=== PATIENT | female | born 1965 | race African-American/Black ===

== ENCOUNTER 2017-02-06 11:54 | Inpatient (IN) | payer OTHER ==
[2017-02-06 12:14] VITALS: BMI 24.7
--- NOTE | 2017-02-06 12:50 | HP ---
CIWA Score - CIWA Score Nausea/Vomitin-Mild Nausea/No Vomiting Muscle Tremors: 4-Moderate,w/Arms Extend Anxiety: 4-Mod. Anxious/Guarded Agitation: 1-Slight > Activity Paroxysmal Sweats: 1-Minimal Palms Moist Orientation: 1-Uncertain about Date Tacttile Disturbances: 1-Very Mild Itch/Numbness Auditory Disturbances: 1-Very Mild Visual Disturbances: 1-Very Mild Sensitivity Headache: 1-Very Mild CIWA-Ar Total Score: 16 Admission ROS S - HPI Chief Complaint: I'm tired, I want to stop drinking, my life is messed up and I'm so sad about it Allergies/Adverse Reactions: Allergies Allergy/AdvReac Type Severity Reaction Status Date / Time No Known Allergies Allergy Verified 10/25/16 10:50 History of Present Illness: 51 year old woman here for detox from alcohol. Last here in october 2016 for detox but relapsed shortly after. No seizures but does have black outs. States she was in [facility] ED yesterday for asthma - placed on albuteral and oral prednisone - coughing up thick whitish phlegm. Has lost about 10lbs in last month. Exam Limitations: Clinical Condition - Ebola screening Have you traveled outside of the country in the last 21 days: No Have you had contact with anyone from an Ebola affected area: No Have you been sick,other than usual withdrawal symptoms: No Do you have a fever: No - Review of Systems Constitutional: Chills, Loss of Appetite, Night Sweats, Changes in sleep EENT: reports: Blurred Vision Respiratory: reports: Cough, SOB with Exertion, Productive cough (thick white phlegm) Cardiac: reports: No Symptoms Reported GI: reports: Diarrhea, Indigestion : reports: Frequency Musculoskeletal: reports: No Symptoms Reported Integumentary: reports: Dryness Neuro: reports: Headache Endocrine: reports: No Symptoms Reported Hematology: reports: No Symptoms Reported Psychiatric: reports: Judgement Intact, Mood/Affect Appropiate, Anxious Other Systems: Reviewed and Negative Patient History - Patient Medical History Hx Anemia: Yes (Previously taking Iron supplmentation, has not taken for last 3 weeks.) Hx Asthma: Yes (non -complaint with meds.) Hx Chronic Obstructive Pulmonary Disease (COPD): No Hx Cancer: No Hx Cardiac Disorders: Yes (2 previous IL's, both in 05/2016.) Hx Congestive Heart Failure: No Hx Hypertension: Yes Hx Hypercholesterolemia: Yes (On meds.) Hx Pacemaker: No HX Cerebrovascular Accident: No Hx Seizures: No Hx Dementia: No Hx Diabetes: No Hx Gastrointestinal Disorders: Yes (Hx of GERD.) Hx Liver Disease: No Hx Genitourinary Disorders: No Hx Sexually Transmitted Disorders: No Hx Renal Disease (ESRD): No Hx Thyroid Disease: No Hx Human Immunodeficiency Virus (HIV): No Hx Hepatitis C: No Hx Depression: No Hx Suicide Attempt: Yes (Tried to jump in [place] in 1991; PT. DENIES CURRENT SI/HI.) Hx Bipolar Disorder: Yes (Previously on meds., not for last 3 weeks.) Hx Schizophrenia: Yes - Patient Surgical History Past Surgical History: Yes Hx Neurologic Surgery: No Hx Cataract Extraction: No Hx Cardiac Surgery: Yes (stent x1 in 04/30 in [facility].) Hx Lung Surgery: No Hx Breast Surgery: No Hx Breast Biopsy: No Hx Abdominal Surgery: No Hx Appendectomy: No Hx Cholecystectomy: No Hx Genitourinary Surgery: No Hx Section: Yes (x 6) Hx Orthopedic Surgery: No Hx Hysterectomy: No Other Surgical History: TUBAL LIGATION: 2003. Anesthesia Reaction: No - PPD History Date: 10/27/16 - Reproductive History Patient is a Female of Child Bearing Age (11 -55 yrs old): Yes Last Menstrual Period: 06/01/16 - Smoking Cessation Smoking history: Current every day smoker Have you smoked in the past 12 months: Yes Aproximately how many cigarettes per day: 10 Cigars Per Day: 0 Hx Chewing Tobacco Use: No Initiated information on smoking cessation: Yes 'Breaking Loose' booklet given: 02/06/17 (give on floor) - Substance & Tx. History Hx Alcohol Use: Yes Hx Substance Use: No Substance Use Type: Alcohol Hx Substance Use Treatment: Yes (detox, rehab) - Substances Abused Alcohol Route: Oral Frequency: Daily Amount used: ten 24oz cans beer; 3 pints liquor Age of first use: 16 (also as baby) Date of Last Use: 02/06/17 Family Disease History - Family Disease History Family Disease History: CA: Grandparent ( brain cancer), Mother ( - etoh - throat cancer), Other: Father ( - etoh-heroin -hiv), Mother Admission Physical Exam BHS - Vital Signs Vital Signs: Vital Signs - 24 hr 02/06/17 12:13 Temperature 98.1 F Pulse Rate 82 Respiratory 18 Rate Blood Pressure 128/79 - Physical General Appearance: Yes: Nourished, Appropriately Dressed, Mild Distress, Anxious HEENTM: Yes: Hearing grossly Normal, Normal ENT Inspection, Normocephalic, Normal Voice, Pharynx Normal Respiratory: Yes: No Respiratory Distress, Rhonchi, Other (coughing up thick, [place]/white phlegm) Neck: Yes: No masses,lesions,Nodules, Supple Breast: Yes: Breast Exam Deferred Cardiology: Yes: Regular Rhythm, Regular Rate Abdominal: Yes: Soft Genitourinary: Yes: Frequency Back: Yes: Normal Inspection Musculoskeletal: Yes: full range of Motion, Gait Steady Extremities: Yes: Normal Inspection, Normal Range of Motion, Non-Tender Neurological: Yes: Fully Oriented, Alert, Normal Mood/Affect, Normal Response Integumentary: Yes: Normal Color, Dry, Warm Lymphatic: Yes: Within Normal Limits - Diagnostic (1) Alcohol dependence with uncomplicated withdrawal Current Visit: Yes Status: Chronic (2) Asthma Current Visit: Yes Status: Chronic Qualifiers: Asthma severity: moderate persistent Asthma complication type: uncomplicated Qualified Code(s): J45.40 - Moderate persistent asthma, uncomplicated (3) Hypercholesteremia Current Visit: Yes Status: Chronic (4) Hypertension Current Visit: Yes Status: Chronic Qualifiers: Hypertension type: essential hypertension Qualified Code(s): I10 - Essential (primary) hypertension Cleared for Admission [facility] - Detox or Rehab [facility] Level of Care: Medically Managed Detox Regimen/Protocol: Librium [facility] Breath Alcohol Content Breath Alcohol Content: 0.022 Urine Pregancy Test - Result Urine Test Results: Negative- NO Line Present Urine Drug Screen - Results Drug Screen Negative: Yes
[2017-02-06] MEDS ORDERED: MAGNESIUM CITRATE 300 ML BOTTLE PO PRN (13:04)
[2017-02-06] MEDS ORDERED: NICOTINE POLACRILEX 2 MG GUM BUC PRN (13:04)
[2017-02-06] MEDS ORDERED: P-EPHED 60MG/TRIPROLIDI 2.5MG TABLET PO PRN (13:04)
[2017-02-06] MEDS ORDERED: guaiFENesin/D-METHORPHAN HB 10 ML UNIT-DOSE CUPS PO PRN (13:04)
[2017-02-06] MEDS ORDERED: MENTHOL/PHENOL 1 EACH UD MM PRN (13:04)
[2017-02-06] MEDS ORDERED: LOPERAMIDE HCL 2 MG CAPSULE PO PRN (13:04)
[2017-02-06] MEDS ORDERED: hydrOXYzine PAMOATE 50 MG CAPSULE (FP) PO PRN (13:04)
[2017-02-06] MEDS ORDERED: ACETAMINOPHEN 325 MG TABLET (FP) PO PRN (13:04)
[2017-02-06] MEDS ORDERED: ALBUTEROL SO4 6.7 GM HFA INHALER IH PRN (13:06)
[2017-02-06] MEDS ORDERED: chlordiazePOXIDE HCL 25 MG CAPSULE PO PRN (13:20)
[2017-02-06] MEDS ORDERED: diphenhydrAMINE HCL 50 MG CAPSULE PO PRN (13:21)
[2017-02-06] MEDS ORDERED: ALBUTEROL SO4 2.5/IPRATROPIUM 0.5 INH SOL 3 ML VIAL.NEB. NEB PRN (13:23)
[2017-02-06] MEDS ORDERED: chlordiazePOXIDE HCL 25 MG CAPSULE PO ONE (14:30)
[2017-02-06] MEDS: PANTOPRAZOLE 40 MG TABLET (FP) PO SCH (14:52)
[2017-02-06] MEDS: predniSONE 20 MG TABLET (UD) PO SCH (14:52)
--- NOTE | 2017-02-06 15:16 | CONSULT ---
[facility] Psychiatric Consult - Data Date of interview: 02/06/17 Admission source: [facility] Identifying data: Readmission to [facility] for this 51 y/o AA female seeking detox treatment for alcohol dependence.Patient is single,a mother of two, homeless (snf),unemployed and supported on food stamps. Substance Abuse History: - Smoking Cessation. Smoking history: Current every day smoker. Have you smoked in the past 12 months: Yes. Aproximately how many cigarettes per day: 10. Cigars Per Day: 0. Hx Chewing Tobacco Use: No. Initiated information on smoking cessation: Yes. 'Breaking Loose' booklet given : 02/06/17 (give on floor). - Substance & Tx. History. Hx Alcohol Use: Yes. Hx Substance Use: No. Substance Use Type: Alcohol. Hx Substance Use Treatment : Yes (detox, rehab). - Substances Abused. Alcohol. Route: Oral. Frequency: Daily. Amount used: ten 24oz cans beer; 3 pints liquor. Age of first use: 16 (also as baby). Date of Last Use: 02/06/17. Confirmed by patient. Medical History: Bronchial asthma,anemia,GERD,past history of two episodes of myocardial infarction,hypertension,hypercholesterolemia and tubal ligation (2003 ). Psychiatric History: Patient admits to a history of multiple psychiatric hospitalizations.Known to [facility].Diagnosed with Bipolar Disorder.Prescribed depakote 250 mg po bid + zyprexa 5 mg po daily + zoloft 100 mg po daily.Ms Reed indicates that she is not adherent to OPD care.Currently under no psychiatric management.Takes medications only sporadically.Review of pharmacy claims : no activity since 10/2016.Patient denies history of suicide attempts ([facility] report,however,mentions ideation to jump [place] the [place] in 1991). Physical/Sexual Abuse/Trauma History: Patient denies. Additional Comment: Drug Screen Negative: Yes .Noted. Mental Status Exam - Mental Status Exam Alert and Oriented to: Time, Place, Person Cognitive Function: Good Patient Appearance: Well Groomed Mood: Hopeful, Euthymic Affect: Appropriate, Normal Range Patient Behavior: Appropriate, Cooperative Speech Pattern: Clear, Appropriate Voice Loudness: Normal Thought Process: Goal Oriented Thought Disorder: Not Present Hallucinations: Denies Suicidal Ideation: Denies Homicidal Ideation: Denies Insight/Judgement: Poor Sleep: Poorly, Difficulty falling asleep Appetite: Good Muscle strength/Tone: Normal Gait/Station: Normal Psychiatric Findings - Problem List ([place] 1, 2,3) (1) Alcohol dependence with uncomplicated withdrawal Current Visit: Yes Status: Acute (2) Bipolar disorder Current Visit: Yes Status: Chronic Comment: Self-report. (3) Hypercholesteremia Current Visit: Yes Status: Chronic (4) Asthma Current Visit: Yes Status: Chronic Qualifiers: Asthma severity: moderate persistent Asthma complication type: uncomplicated Qualified Code(s): J45.40 - Moderate persistent asthma, uncomplicated (5) Hypertension Current Visit: Yes Status: Chronic Qualifiers: Hypertension type: essential hypertension Qualified Code(s): I10 - Essential (primary) hypertension - Initial Treatment Plan Initial Treatment Plan: Psychoeducation.Detoxification.Medications resumed at patient's request.See general orders.Side effects/benefits of depakote,zoloft and zyprexa discussed with patient.Made aware of risk of liver dysfunction, blood dyscrasias,weight gain (valproate),suicidal ideation (zoloft),metabolic syndrome (olanzapine).Consent (verbal) offered for implementation of this careplan.Observation.Valproic acid level : pending.Will follow.
[2017-02-06] MEDS: chlordiazePOXIDE HCL 25 MG CAPSULE PO SCH ×2 (17:13→22:38)
[2017-02-06 19:23] LABS: URINE APPEARANCE SLCLOUDY; URINE BILIRUBIN NEGATIVE (NEGATIVE); URINE BLOOD NEGATIVE (NEGATIVE); URINE COLOR YELLOW; URINE GLUCOSE (UA) NEGATIVE (NEGATIVE); URINE KETONE NEGATIVE (NEGATIVE); URINE LEUK ESTERASE NEGATIVE (NEGATIVE); URINE NITRITE NEGATIVE (NEGATIVE); URINE UROBILINOGEN NEGATIVE E.U./dl (0.2-1.0)
[2017-02-06 19:25] LABS: URINE PROTEIN 1+ (NEGATIVE)
[2017-02-06 19:30] LABS: URINE HYALINE CAST 4 /lpf; URINE MUCUS MANY; URINE RBC 1 /hpf (0-3); URINE WBC 2 /hpf (3-5)
[2017-02-06] MEDS: DIVALPROEX SODIUM 250 MG TABLET E.C. (FP) PO SCH (22:38)
[2017-02-06] MEDS: OLANZapine 5 MG TABLET PO SCH (22:38)
[2017-02-06] MEDS: ATORVASTATIN CA 10 MG TABLET (FP) PO SCH (22:38)
[2017-02-06] MEDS: THIAMINE HCL 100 MG TABLET (FP) PO SCH (22:38)
[2017-02-07] MEDS: chlordiazePOXIDE HCL 25 MG CAPSULE PO SCH ×4 (06:08→22:39)
[2017-02-07 10:46] LABS: MCH 30.8 pg (25.7-33.7); MCHC 32.2 g/dl (32.0-36.0); MEAN CELL VOLUME 95.9 fl (80-96); MEAN PLT VOLUME 8.2 fl (7.5-11.1); PLATELET COUNT 407 K/MM3 (134-434); RDW 15.2 % (11.6-15.6); WHITE BLOOD COUNT 12.9 K/mm3 (4.0-10.0)
[2017-02-07] MEDS: PANTOPRAZOLE 40 MG TABLET (FP) PO SCH (10:52)
[2017-02-07] MEDS: PRENATAL VITAMINS W/ FOLIC ACID TABLET (FP) PO SCH (10:52)
[2017-02-07] MEDS: predniSONE 20 MG TABLET (UD) PO SCH (10:52)
[2017-02-07] MEDS: DIVALPROEX SODIUM 250 MG TABLET E.C. (FP) PO SCH ×2 (10:52→22:41)
[2017-02-07] MEDS: SERTRALINE HCL 50 MG TABLET (FP) PO SCH (10:52)
[2017-02-07 11:05] LABS: ALBUMIN 3.6 g/dl (3.4-5.0); ANION GAP 10 (8-16); CALCIUM 9.4 mg/dL (8.5-10.1); CO2 27 mmol/L (21-32)
[2017-02-07 11:10] LABS: ALK PHOS 110 U/L (45-117); BILIRUBIN,TOTAL 0.2 mg/dL (0.2-1.0); CREATININE 0.6 mg/dL (0.55-1.02); GLUCOSE,RANDOM 107 mg/dL (74-106); SGOT/AST 17 U/L (15-37); SGPT/ALT 26 U/L (12-78); TOT PROT 7.9 g/dl (6.4-8.2)
--- NOTE | 2017-02-07 16:56 | PN ---
S CIWA - CIWA Score Nausea/Vomitin Muscle Tremors: 4-Moderate,w/Arms Extend Anxiety: 3 Agitation: 3 Paroxysmal Sweats: No Perspiration Orientation: 0-Oriented Tacttile Disturbances: 1-Very Mild Itch/Numbness Auditory Disturbances: 0-None Visual Disturbances: 0-None Headache: 2-Mild CIWA-Ar Total Score: 16 S Progress Note (SOAP) Subjective: Anxious, sweating, nausea, interrupted sleep Objective: 02/07/17 16:51 Last Vital Signs Temp Pulse Resp BP Pulse Ox 97.7 F 95 H 18 137/92 02/07/17 14:11 02/07/17 14:11 02/07/17 14:11 02/07/17 14:11 Laboratory Tests 02/06/17 02/07/17 02/07/17 17:55 07:30 07:30 WBC 12.9 H D RBC 4.18 Hgb 12.9 Hct 40.1 MCV 95.9 MCHC 32.2 RDW 15.2 Plt Count 407 MPV 8.2 Sodium 142 Potassium 4.1 Chloride 105 Carbon Dioxide 27 Anion Gap 10 BUN 7 D Creatinine 0.6 Creat Clearance w eGFR > 60 Random Glucose 107 H D Calcium 9.4 Total Bilirubin 0.2 D AST 17 D ALT 26 D Alkaline Phosphatase 110 Total Protein 7.9 Albumin 3.6 Urine Color Yellow Urine Appearance Slcloudy Urine pH 5.0 Ur Specific [place] 1.020 Urine Protein 1+ H Urine Glucose (UA) Negative Urine Ketones Negative Urine Blood Negative Urine Nitrite Negative Urine Bilirubin Negative Urine Urobilinogen Negative Ur Leukocyte Esterase Negative Urine RBC 1 Urine WBC 2 Ur Epithelial Cells Few Hyaline Casts 4 Urine Mucus Many Valproic Acid RPR Titer 02/07/17 02/07/17 07:30 07:30 WBC RBC Hgb Hct MCV MCHC RDW Plt Count MPV Sodium Potassium Chloride Carbon Dioxide Anion Gap BUN Creatinine Creat Clearance w eGFR Random Glucose Calcium Total Bilirubin AST ALT Alkaline Phosphatase Total Protein Albumin Urine Color Urine Appearance Urine pH Ur Specific [place] Urine Protein Urine Glucose (UA) Urine Ketones Urine Blood Urine Nitrite Urine Bilirubin Urine Urobilinogen Ur Leukocyte Esterase Urine RBC Urine WBC Ur Epithelial Cells Hyaline Casts Urine Mucus Valproic Acid 26.341 L RPR Titer Nonreactive Labs noted: UA with 1+ protein EKG: NSR at 87 bpm, QTC 539 Assessment: 02/07/17 16:53 Withdrawal symptoms Noted with mild proteinuria Noted with prolonged QTc on EKG Plan: Continue detox Proteinuria: encouraged to drink lots of water, repeat UA Prolonged QTc on EKG: asymptomatic, avoid medications that prolong QTc, repeat EKG
--- NOTE | 2017-02-07 22:32 | EKG ---
Test Reason : Blood Pressure : / mmHG Vent. Rate : 087 BPM Atrial Rate : 087 BPM P-R Int : 174 ms QRS Dur : 096 ms QT Int : 448 ms P-R-T Axes : 075 079 064 degrees QTc Int : 539 ms NORMAL SINUS RHYTHM ANTERIOR INFARCT , AGE UNDETERMINED PROLONGED QT ABNORMAL ECG NO PREVIOUS ECGS AVAILABLE Confirmed by WAQAS GRIMM MD ([id number]) on 02/07/2017 10:31:57 PM Referred By: Confirmed By:WAQAS GRIMM MD
[2017-02-07] MEDS: THIAMINE HCL 100 MG TABLET (FP) PO SCH (22:39)
[2017-02-07] MEDS: OLANZapine 5 MG TABLET PO SCH (22:39)
[2017-02-07] MEDS: ATORVASTATIN CA 10 MG TABLET (FP) PO SCH (22:39)
[2017-02-08] MEDS: chlordiazePOXIDE HCL 25 MG CAPSULE PO SCH ×2 (06:01→11:19)
[2017-02-08] MEDS: PANTOPRAZOLE 40 MG TABLET (FP) PO SCH (11:16)
[2017-02-08] MEDS: SERTRALINE HCL 50 MG TABLET (FP) PO SCH (11:16)
[2017-02-08] MEDS: predniSONE 20 MG TABLET (UD) PO SCH (11:16)
[2017-02-08] MEDS: DIVALPROEX SODIUM 250 MG TABLET E.C. (FP) PO SCH ×2 (11:16→22:48)
[2017-02-08] MEDS: PRENATAL VITAMINS W/ FOLIC ACID TABLET (FP) PO SCH (11:16)
--- NOTE | 2017-02-08 12:17 | PN ---
[facility] CIWA - CIWA Score Nausea/Vomitin Muscle Tremors: 2 Anxiety: 3 Agitation: 2 Paroxysmal Sweats: 3 Orientation: 0-Oriented Tacttile Disturbances: 1-Very Mild Itch/Numbness Auditory Disturbances: 0-None Visual Disturbances: 0-None Headache: 0-None Present CIWA-Ar Total Score: 13 S Progress Note (SOAP) Subjective: INTERRUPTED SLEEP, SWEATS Objective: 02/08/17 12:16 Vital Signs Temperature 97.5 F L 02/08/17 10:00 Pulse Rate 78 02/08/17 10:00 Respiratory Rate 16 02/08/17 10:00 Blood Pressure 152/94 02/08/17 10:00 O2 Sat by Pulse Oximetry (%) Laboratory Tests 02/06/17 02/07/17 02/07/17 17:55 07:30 07:30 WBC 12.9 H D RBC 4.18 Hgb 12.9 Hct 40.1 MCV 95.9 MCHC 32.2 RDW 15.2 Plt Count 407 MPV 8.2 Sodium 142 Potassium 4.1 Chloride 105 Carbon Dioxide 27 Anion Gap 10 BUN 7 D Creatinine 0.6 Creat Clearance w eGFR > 60 Random Glucose 107 H D Calcium 9.4 Total Bilirubin 0.2 D AST 17 D ALT 26 D Alkaline Phosphatase 110 Total Protein 7.9 Albumin 3.6 Urine Color Yellow Urine Appearance Slcloudy Urine pH 5.0 Ur Specific [place] 1.020 Urine Protein 1+ H Urine Glucose (UA) Negative Urine Ketones Negative Urine Blood Negative Urine Nitrite Negative Urine Bilirubin Negative Urine Urobilinogen Negative Ur Leukocyte Esterase Negative Urine RBC 1 Urine WBC 2 Ur Epithelial Cells Few Hyaline Casts 4 Urine Mucus Many Valproic Acid RPR Titer 02/07/17 02/07/17 07:30 07:30 WBC RBC Hgb Hct MCV MCHC RDW Plt Count MPV Sodium Potassium Chloride Carbon Dioxide Anion Gap BUN Creatinine Creat Clearance w eGFR Random Glucose Calcium Total Bilirubin AST ALT Alkaline Phosphatase Total Protein Albumin Urine Color Urine Appearance Urine pH Ur Specific [place] Urine Protein Urine Glucose (UA) Urine Ketones Urine Blood Urine Nitrite Urine Bilirubin Urine Urobilinogen Ur Leukocyte Esterase Urine RBC Urine WBC Ur Epithelial Cells Hyaline Casts Urine Mucus Valproic Acid 26.341 L RPR Titer Nonreactive 02/08/17 16:18 PT AOX3 IN NAD AMBULATING Assessment: 02/08/17 12:16 withdrawal sx's 02/08/17 16:18 Plan: cont. detox increase fluids
--- NOTE | 2017-02-08 12:41 | EKG ---
Test Reason : Blood Pressure : / mmHG Vent. Rate : 060 BPM Atrial Rate : 060 BPM P-R Int : 160 ms QRS Dur : 088 ms QT Int : 484 ms P-R-T Axes : 060 072 061 degrees QTc Int : 484 ms NORMAL SINUS RHYTHM WITH SINUS ARRHYTHMIA PROLONGED QT ABNORMAL ECG WHEN COMPARED WITH ECG OF 06-FEB-2017 14:05, VENT. RATE HAS DECREASED Confirmed by MANN LIVE, OLE ([id number]) on 02/08/2017 12:40:57 PM Referred By: Confirmed By:OLE DARNELL MD
[2017-02-08] MEDS: chlordiazePOXIDE 5 MG CAPSULE PO SCH ×2 (17:12→22:35)
[2017-02-08] MEDS: THIAMINE HCL 100 MG TABLET (FP) PO SCH (22:35)
[2017-02-08] MEDS: ATORVASTATIN CA 10 MG TABLET (FP) PO SCH (22:35)
[2017-02-08] MEDS: OLANZapine 5 MG TABLET PO SCH (22:48)
[2017-02-09 03:56] LABS: URINE APPEARANCE CLEAR; URINE BILIRUBIN NEGATIVE (NEGATIVE); URINE BLOOD NEGATIVE (NEGATIVE); URINE COLOR LTYELLOW; URINE GLUCOSE (UA) 1+ (NEGATIVE); URINE KETONE NEGATIVE (NEGATIVE); URINE LEUK ESTERASE NEGATIVE (NEGATIVE); URINE NITRITE NEGATIVE (NEGATIVE); URINE PROTEIN NEGATIVE (NEGATIVE); URINE UROBILINOGEN NEGATIVE E.U./dl (0.2-1.0)
[2017-02-09] MEDS: chlordiazePOXIDE 5 MG CAPSULE PO SCH ×2 (06:12→10:49)
[2017-02-09] MEDS: PANTOPRAZOLE 40 MG TABLET (FP) PO SCH (10:48)
[2017-02-09] MEDS: predniSONE 20 MG TABLET (UD) PO SCH (10:48)
[2017-02-09] MEDS: PRENATAL VITAMINS W/ FOLIC ACID TABLET (FP) PO SCH (10:48)
[2017-02-09] MEDS: SERTRALINE HCL 50 MG TABLET (FP) PO SCH (10:49)
[2017-02-09] MEDS: DIVALPROEX SODIUM 250 MG TABLET E.C. (FP) PO SCH ×2 (10:49→22:50)
--- NOTE | 2017-02-09 10:51 | PN ---
BHS Progress Note (SOAP) Subjective: groggy sleepy little sweats Objective: 02/09/17 10:50 Vital Signs Temperature 98.8 F 02/09/17 10:05 Pulse Rate 82 02/09/17 10:05 Respiratory Rate 20 02/09/17 10:05 Blood Pressure 109/71 02/09/17 10:05 O2 Sat by Pulse Oximetry (%) awake/alert ambulating no acute distress Assessment: 02/09/17 10:50 withdrawal sx Plan: hold 10am libirum continue detox regimen as ordered increase fluids d/c in am
[2017-02-09] MEDS: chlordiazePOXIDE HCL 10 MG CAPSULE PO SCH ×2 (17:26→22:50)
[2017-02-09] MEDS: THIAMINE HCL 100 MG TABLET (FP) PO SCH (22:50)
[2017-02-09] MEDS: ATORVASTATIN CA 10 MG TABLET (FP) PO SCH (22:50)
[2017-02-09] MEDS: OLANZapine 5 MG TABLET PO SCH (22:50)
[2017-02-10 07:02] VITALS: BP 144/76; PULSE 75; TEMP 98.2
--- NOTE | 2017-02-10 09:19 | DS ---
[facility] Detox Discharge Summary Admission Date: 02/06/17 - History Present History: Alcohol Dependence, Cannabis Dependence - Physical Exam Results Vital Signs: Vital Signs Temperature 98.2 F 02/10/17 07:01 Pulse Rate 75 02/10/17 07:01 Respiratory Rate 18 02/10/17 07:01 Blood Pressure 144/76 02/10/17 07:01 O2 Sat by Pulse Oximetry (%) - Treatment Hospital Course: Detox Protocol Followed, Detoxed Safely, Responded well, Discharged Condition Good - Medication Discharge Medications: Ambulatory Orders Atorvastatin Calcium [Lipitor] 10 mg PO HS 10/25/16 Esomeprazole Magnesium 40 mg PO DAILY 10/25/16 Olanzapine [Zyprexa -] 5 mg PO DAILY 10/25/16 Divalproex [Depakote -] 250 mg PO BID #60 tablet.ec 10/26/16 Sertraline HCl [Zoloft -] 100 mg PO DAILY #30 tablet 10/26/16 Divalproex [Depakote -] 500 mg PO HS #30 tablet.ec 02/06/17 Enalapril Maleate [Vasotec -] 2.5 mg PO DAILY 02/06/17 Olanzapine [Zyprexa -] 5 mg PO HS #30 tablet 02/06/17 Sertraline HCl [Zoloft -] 100 mg PO DAILY #30 tablet 02/06/17 - Diagnosis (1) Alcohol dependence with uncomplicated withdrawal Current Visit: Yes Status: Chronic (2) Asthma Current Visit: Yes Status: Chronic Qualifiers: Asthma severity: moderate persistent Asthma complication type: uncomplicated Qualified Code(s): J45.40 - Moderate persistent asthma, uncomplicated (3) Bipolar disorder Current Visit: Yes Status: Chronic Qualifiers: Most recent bipolar episode type: most recent episode unspecified type (4) Hypercholesteremia Current Visit: Yes Status: Chronic (5) Hypertension Current Visit: Yes Status: Chronic Qualifiers: Hypertension type: essential hypertension Qualified Code(s): I10 - Essential (primary) hypertension (6) Cannabis dependence, uncomplicated Current Visit: Yes Status: Chronic - AMA Did Patient Leave Against Medical Advice: No
[2017-02-10] MEDS: DIVALPROEX SODIUM 250 MG TABLET E.C. (FP) PO SCH (10:56)
[2017-02-10] MEDS: PRENATAL VITAMINS W/ FOLIC ACID TABLET (FP) PO SCH (10:56)
[2017-02-10] MEDS: PANTOPRAZOLE 40 MG TABLET (FP) PO SCH (10:56)
[2017-02-10] MEDS: SERTRALINE HCL 50 MG TABLET (FP) PO SCH (10:56)
[2017-02-10] MEDS: predniSONE 20 MG TABLET (UD) PO SCH (10:56)
[2017-02-10] MEDS: chlordiazePOXIDE HCL 10 MG CAPSULE PO SCH (10:57)
== END 2017-02-10 12:11 | disposition home or self-care (01) | DRG 775 ==
LOC: YASAS 11:54 → Y6N 14:10
PROVIDERS: ADMIT Internal Medicine; ATTEND Internal Medicine Addiction Medicine
PROC: HZ2ZZZZ Detoxification Services for Substance Abuse Treatment (ICD-10-PCS; principal; 2017-02-06)
DX: F10.230 Alcohol dependence with withdrawal, uncomplicated (principal); F12.20 Cannabis dependence, uncomplicated; F17.210 Nicotine dependence, cigarettes, uncomplicated; F31.9 Bipolar disorder, unspecified; J45.40 Moderate persistent asthma, uncomplicated; E78.00 Pure hypercholesterolemia, unspecified; I10 Essential (primary) hypertension; I25.2 Old myocardial infarction; I45.81 Long QT syndrome; R80.9 Proteinuria, unspecified; Z87.19 Personal history of other diseases of the digestive system; Z86.2 Personal history of diseases of the blood and blood-forming organs and certain disorders involving the immune mechanism; Z91.14 Patient's other noncompliance with medication regimen; Z91.5 Personal history of self-harm
CPT/HCPCS: 36415; 80053; 80164; 81003; 81015; 85027; 86593; 93005; 93010

== ENCOUNTER 2017-08-24 11:46 | Inpatient (IN) | payer OTHER ==
[2017-08-24 14:34] VITALS: BMI 26.6
--- NOTE | 2017-08-24 16:59 | HP ---
CIWA Score - CIWA Score Nausea/Vomitin-No Nausea/No Vomiting Muscle Tremors: 4-Moderate,w/Arms Extend Anxiety: 3 Agitation: 4-Moderately Restless Paroxysmal Sweats: 3 Orientation: 0-Oriented Tacttile Disturbances: 0-None Auditory Disturbances: 0-None Visual Disturbances: 0-None Headache: 1-Very Mild CIWA-Ar Total Score: 15 Admission ROS BHS - HPI Chief Complaint: I am here to detox from my alcohol use. Allergies/Adverse Reactions: Allergies Allergy/AdvReac Type Severity Reaction Status Date / Time No Known Allergies Allergy Verified 08/24/17 16:35 History of Present Illness: pt is a 51yr old male with a history of alcohol and cocaine dependence seeking detox for treatment. Exam Limitations: No Limitations - Ebola screening Have you traveled outside of the country in the last 21 days: No Have you had contact with anyone from an Ebola affected area: No Have you been sick,other than usual withdrawal symptoms: No Do you have a fever: No - Review of Systems Constitutional: Chills, Loss of Appetite, Night Sweats, Changes in sleep, Unintentional Wgt. Loss EENT: reports: No Symptoms Reported Respiratory: reports: No Symptoms reported Cardiac: reports: Syncope GI: reports: Poor Appetite, Poor Fluid Intake : reports: No Symptoms Reported Musculoskeletal: reports: No Symptoms Reported Integumentary: reports: Flushing, Sweating Neuro: reports: Tingling, Tremors Endocrine: reports: Excessive Sweating, Flushing, Intolerance to Cold, Intolerance to Heat Hematology: reports: Anemia Psychiatric: reports: Judgement Intact, Mood/Affect Appropiate, Orientated x3, Agitated, Anxious Other Systems: Reviewed and Negative Patient History - Patient Medical History Hx Anemia: Yes (Previously taking Iron supplmentation, has not taken for last 3 weeks.) Hx Asthma: Yes (non -complaint with meds.) Hx Chronic Obstructive Pulmonary Disease (COPD): No Hx Cancer: No Hx Cardiac Disorders: Yes (2 previous MO's, both in 05/2016.) Hx Congestive Heart Failure: No Hx Hypertension: Yes Hx Hypercholesterolemia: Yes (On meds.) Hx Pacemaker: No HX Cerebrovascular Accident: No Hx Seizures: No Hx Dementia: No Hx Diabetes: No Hx Gastrointestinal Disorders: Yes (Hx of GERD.) Hx Liver Disease: No Hx Genitourinary Disorders: No Hx Sexually Transmitted Disorders: No Hx Renal Disease (ESRD): No Hx Thyroid Disease: No Hx Human Immunodeficiency Virus (HIV): No (negative) Hx Hepatitis C: No (negative) Hx Depression: No Hx Suicide Attempt: Yes (Tried to jump in [place] in 1991; PT. DENIES CURRENT SI/HI.) Hx Bipolar Disorder: Yes (Previously on meds., not for last 3 weeks.) Hx Schizophrenia: Yes - Patient Surgical History Past Surgical History: Yes Hx Neurologic Surgery: No Hx Cataract Extraction: No Hx Cardiac Surgery: Yes (stent x1 in 04/30 in [facility].) Hx Lung Surgery: No Hx Breast Surgery: No Hx Breast Biopsy: No Hx Abdominal Surgery: No Hx Appendectomy: No Hx Cholecystectomy: No Hx Genitourinary Surgery: No Hx Section: Yes (x 6) Hx Orthopedic Surgery: No Hx Hysterectomy: No Other Surgical History: TUBAL LIGATION: 2003. Anesthesia Reaction: No - PPD History Previous Implant?: Yes Documented Results: Negative w/proof Date: 02/08/17 PPD to be Administered?: No - Reproductive History Last Menstrual Period: 06/01/16 Patient : No - Smoking Cessation Smoking history: Current every day smoker Have you smoked in the past 12 months: Yes Aproximately how many cigarettes per day: 10 Cigars Per Day: 0 Hx Chewing Tobacco Use: No Initiated information on smoking cessation: Yes 'Breaking Loose' booklet given: 08/24/17 - Substance & Tx. History Hx Alcohol Use: Yes Hx Substance Use: No Substance Use Type: Alcohol Hx Substance Use Treatment: Yes (last detox 01/2017) - Substances Abused Alcohol-vodka/beer Route: Oral Frequency: Daily Amount used: 3 pts./2-6 pks. Age of first use: 16 Date of Last Use: 08/24/17 Family Disease History - Family Disease History Family Disease History: CA: Grandparent ( brain cancer), Mother ( - etoh - throat cancer), Other: Father ( - etoh-heroin -hiv), Mother Admission Physical Exam BHS - Vital Signs Vital Signs: Vital Signs - 24 hr 08/24/17 14:30 Temperature 96.8 F L Pulse Rate 78 Respiratory 18 Rate Blood Pressure 174/95 - Physical General Appearance: Yes: Appropriately Dressed, Moderate Distress, Tremorous, Irritable, Sweating, Anxious HEENTM: Yes: Hearing grossly Normal, Normal Voice Respiratory: Yes: Lungs Clear, Normal Breath Sounds, No Respiratory Distress Neck: Yes: No masses,lesions,Nodules Breast: Yes: Within Normal Limits Cardiology: Yes: Regular Rhythm, Regular Rate, S1, S2 Abdominal: Yes: Normal Bowel Sounds, Non Tender, Soft Genitourinary: Yes: Within Normal Limits Back: Yes: Normal Inspection Musculoskeletal: Yes: full range of Motion, Gait Steady Extremities: Yes: Normal Capillary Refill, Normal Inspection, Non-Tender, Tremors Neurological: Yes: Fully Oriented, Alert, Normal Response Integumentary: Yes: Normal Color, Diaphoresis Lymphatic: Yes: Within Normal Limits - Diagnostic (1) Cocaine dependence Current Visit: Yes Status: Chronic Qualifiers: Substance use status: uncomplicated Qualified Code(s): F14.20 - Cocaine dependence, uncomplicated; F14.20 - Cocaine dependence, uncomplicated; F14.20 - Cocaine dependence, uncomplicated (2) Alcohol dependence with uncomplicated withdrawal Current Visit: Yes Status: Chronic (3) Asthma Current Visit: Yes Status: Chronic Qualifiers: Asthma severity: mild Asthma complication type: uncomplicated (4) Bipolar disorder Current Visit: No Status: Chronic Comment: Self-report. (5) Hypercholesteremia Current Visit: Yes Status: Chronic (6) Hypertension Current Visit: Yes Status: Chronic Qualifiers: Hypertension type: essential hypertension Qualified Code(s): I10 - Essential (primary) hypertension; I10 - Essential (primary) hypertension; I10 - Essential (primary) hypertension Cleared for Admission [facility] - Detox or Rehab [facility] Level of Care: Medically Managed Detox Regimen/Protocol: Librium [facility] Breath Alcohol Content Breath Alcohol Content: 0.095 Urine Pregancy Test - Result Urine Test Results: Negative- NO Line Present Urine Drug Screen - Results Drug Screen Negative: No Urine Drug Screen Results: BRAYAN-Cocaine
[2017-08-24] MEDS ORDERED: IBUPROFEN 400 MG TABLET (FP) PO PRN (17:01)
[2017-08-24] MEDS ORDERED: MAGNESIUM HYDROX 2400MG/30ML ORAL SUSPENSION 30 ML CUP PO PRN (17:01)
[2017-08-24] MEDS ORDERED: hydrOXYzine PAMOATE 50 MG CAPSULE (FP) PO PRN (17:01)
[2017-08-24] MEDS ORDERED: LOPERAMIDE HCL 2 MG CAPSULE PO PRN (17:01)
[2017-08-24] MEDS ORDERED: MAG HYDROX/AL HYDROX/SIMETH 30 ML UNIT-DOSE CUP PO PRN (17:01)
[2017-08-24] MEDS ORDERED: guaiFENesin/D-METHORPHAN HB 10 ML UNIT-DOSE CUPS PO PRN (17:01)
[2017-08-24] MEDS ORDERED: MAGNESIUM CITRATE 300 ML BOTTLE PO PRN (17:01)
[2017-08-24] MEDS ORDERED: ACETAMINOPHEN 325 MG TABLET (FP) PO PRN (17:01)
[2017-08-24] MEDS ORDERED: NICOTINE POLACRILEX 4 MG GUM BC PRN (17:01)
[2017-08-24] MEDS ORDERED: P-EPHED 60MG/TRIPROLIDI 2.5MG TABLET PO PRN (17:01)
[2017-08-24] MEDS ORDERED: chlordiazePOXIDE HCL 25 MG CAPSULE PO PRN (17:01)
[2017-08-24] MEDS ORDERED: diphenhydrAMINE HCL 50 MG CAPSULE PO PRN (17:01)
[2017-08-24] MEDS ORDERED: MENTHOL/PHENOL 1 EACH UD MM PRN (17:01)
[2017-08-24] MEDS ORDERED: ALBUTEROL SO4 18 GM HFA INHALER IH PRN (17:02)
[2017-08-24] MEDS ORDERED: chlordiazePOXIDE HCL 25 MG CAPSULE PO ONE (18:45)
[2017-08-24 22:07] LABS: URINE APPEARANCE CLOUDY; URINE BILIRUBIN NEGATIVE (NEGATIVE); URINE BLOOD NEGATIVE (NEGATIVE); URINE COLOR YELLOW; URINE GLUCOSE (UA) NEGATIVE (NEGATIVE); URINE KETONE NEGATIVE (NEGATIVE); URINE NITRITE NEGATIVE (NEGATIVE); URINE PROTEIN NEGATIVE (NEGATIVE); URINE UROBILINOGEN NEGATIVE mg/dL (0.2-1.0)
[2017-08-24] MEDS: THIAMINE HCL 100 MG TABLET (FP) PO SCH (22:23)
[2017-08-24] MEDS: ATORVASTATIN CA 10 MG TABLET (FP) PO SCH (22:23)
[2017-08-24] MEDS: chlordiazePOXIDE HCL 25 MG CAPSULE PO SCH (22:23)
[2017-08-24] MEDS: ENALAPRIL MALEATE 2.5 MG TABLET (FP) PO SCH (22:24)
[2017-08-25] MEDS: chlordiazePOXIDE HCL 25 MG CAPSULE PO SCH ×4 (06:00→22:44)
[2017-08-25 09:25] LABS: URINE LEUK ESTERASE Negative (NEGATIVE)
[2017-08-25 10:23] LABS: MCH 29.9 pg (25.7-33.7); MCHC 32.3 g/dl (32.0-36.0); MEAN CELL VOLUME 92.6 fl (80-96); MEAN PLT VOLUME 8.5 fl (7.5-11.1); PLATELET COUNT 305 K/MM3 (134-434); WHITE BLOOD COUNT 6.3 K/mm3 (4.0-10.0)
[2017-08-25] MEDS: ENALAPRIL MALEATE 2.5 MG TABLET (FP) PO SCH (10:49)
[2017-08-25] MEDS: ASPIRIN 81 MG CHEWABLE TABLETS PO SCH (10:49)
[2017-08-25] MEDS: PRENATAL VITAMINS W/ FOLIC ACID TABLET (FP) PO SCH (10:49)
[2017-08-25] MEDS: PANTOPRAZOLE 40 MG TABLET (FP) PO SCH (10:49)
[2017-08-25] MEDS: NICOTINE 21 MG/24 HOURS TOPICAL PATCH TD SCH (10:50)
[2017-08-25 11:00] LABS: ALBUMIN 3.5 g/dl (3.4-5.0); ALK PHOS 122 U/L (45-117); ANION GAP 8 (8-16); BILIRUBIN,TOTAL 0.5 mg/dL (0.2-1.0); CALCIUM 9.5 mg/dL (8.5-10.1); CO2 31 mmol/L (21-32); CREATININE 0.6 mg/dL (0.55-1.02); GLUCOSE,RANDOM 90 mg/dL (74-106); SGOT/AST 35 U/L (15-37); SGPT/ALT 41 U/L (12-78); TOT PROT 7.5 g/dl (6.4-8.2)
--- NOTE | 2017-08-25 13:17 | EKG ---
Test Reason : Blood Pressure : / mmHG Vent. Rate : 067 BPM Atrial Rate : 067 BPM P-R Int : 178 ms QRS Dur : 088 ms QT Int : 448 ms P-R-T Axes : 065 074 065 degrees QTc Int : 473 ms NORMAL SINUS RHYTHM WITH SINUS ARRHYTHMIA NORMAL ECG WHEN COMPARED WITH ECG OF 08-FEB-2017 05:02, NO SIGNIFICANT CHANGE WAS FOUND Confirmed by NICO LIVE, JAYLENE ([id number]) on 08/25/2017 1:16:43 PM Referred By: Tito Cosme Confirmed By:JAYLENE WALSH MD
--- NOTE | 2017-08-25 14:38 | CONSULT ---
[facility] Psychiatric Consult - Data Date of interview: 08/25/17 Admission source: [facility] Identifying data: Another admission to [facility] for this 51 y/o AA female seeking detox treatment on for alcohol dependence.Patient is single,a mother of eight (she aknowledged two in my interview of 01/2017),homeless ( jail),unemployed and supported by her fiance. Substance Abuse History: Confirmed by patient in this session. Smoking Cessation. Smoking history: Current every day smoker. Have you smoked in the past 12 months: Yes. Aproximately how many cigarettes per day: 10. Cigars Per Day: 0. Hx Chewing Tobacco Use: No. Initiated information on smoking cessation : Yes. 'Breaking Loose' booklet given: 08/24/17. - Substance & Tx. History. Hx Alcohol Use: Yes. Hx Substance Use: No. Substance Use Type: Alcohol. Hx Substance Use Treatment: Yes (last detox 01/2017). - Substances Abused. Alcohol-vodka/beer. Route: Oral. Frequency: Daily. Amount used: 3 pts./2-6 pks. Age of first use: 16. Date of Last Use: 08/24/17 Medical History: Medical co-morbidities : Bronchial asthma,anemia,GERD,past history of two episodes of myocardial infarction,hypertension, hypercholesterolemia and tubal ligation (2003). Psychiatric History: History of multiple psychiatric hospitalizations (7-10 admisions).Mostly at the [facility].Patient endorses Bipolar Disorder.Used to be prescribed depakote 250 mg po bid + zyprexa 5 mg po daily + zoloft 100 mg po daily.Chronically non-adherent to OPD care.Ms Reed states that she currently gets psychiatric outpatient services at the [facility] in [facility].She admits to a history of suicide attempt ( allegedly jumped [place] the [place] in 1991) after the of biological mother.Review of recent pharmacy claims : none since 2016 (confirmed by pharmacist at [phone] [facility]).Patient is known to be an unreliable historian. Physical/Sexual Abuse/Trauma History: Patient declines to discuss this domain. Additional Comment: Urine Drug Screen Results: BRAYAN-Cocaine.Noted. Mental Status Exam - Mental Status Exam Alert and Oriented to: Time, Place, Person Cognitive Function: Good Patient Appearance: Well Groomed Mood: Nervous, Withdrawn, Irritable Affect: Mood Congruent Patient Behavior: Fatigued, Guarded, Cooperative (marginally cooperative) Speech Pattern: Clear Voice Loudness: Normal Thought Process: Goal Oriented Thought Disorder: Not Present Hallucinations: Denies Suicidal Ideation: Denies Homicidal Ideation: Denies Insight/Judgement: Poor Sleep: Poorly, Difficulty falling asleep Appetite: Good Muscle strength/Tone: Normal Gait/Station: Normal Psychiatric Findings - Problem List (Pinch 1, 2,3) (1) Alcohol dependence with uncomplicated withdrawal Current Visit: Yes Status: Acute (2) Cocaine dependence Current Visit: Yes Status: Chronic Qualifiers: Substance use status: uncomplicated Qualified Code(s): F14.20 - Cocaine dependence, uncomplicated; F14.20 - Cocaine dependence, uncomplicated; F14.20 - Cocaine dependence, uncomplicated (3) Nicotine dependence Current Visit: Yes Status: Acute (4) Bipolar disorder Current Visit: No Status: Chronic Comment: Self-report.Non-adherent to OPD care. (5) Asthma Current Visit: Yes Status: Chronic Qualifiers: Asthma severity: mild Asthma complication type: uncomplicated (6) Hypercholesteremia Current Visit: Yes Status: Chronic (7) Hypertension Current Visit: Yes Status: Chronic Qualifiers: Hypertension type: essential hypertension Qualified Code(s): I10 - Essential (primary) hypertension; I10 - Essential (primary) hypertension; I10 - Essential (primary) hypertension - Initial Treatment Plan Initial Treatment Plan: Psychoeducation.Detoxification.Medications : zyprexa 5 mg po hs + zoloft 50 mg po daily.Patient declines valproate.Side effects/ benefits discussed with patient.Made aware,in particular, of potential for metabolic syndrome,suicidal ideation and sexual dysfunction.Patient consents ( verbally) to follow this regimen.Observation.
[2017-08-25] MEDS: ATORVASTATIN CA 10 MG TABLET (FP) PO SCH (22:44)
[2017-08-25] MEDS: OLANZapine 5 MG TABLET PO SCH (22:44)
[2017-08-25] MEDS: THIAMINE HCL 100 MG TABLET (FP) PO SCH (22:44)
[2017-08-26] MEDS: chlordiazePOXIDE HCL 25 MG CAPSULE PO SCH ×3 (06:02→17:19)
[2017-08-26] MEDS: ENALAPRIL MALEATE 2.5 MG TABLET (FP) PO SCH (10:33)
[2017-08-26] MEDS: SERTRALINE HCL 50 MG TABLET (FP) PO SCH (10:33)
[2017-08-26] MEDS: PRENATAL VITAMINS W/ FOLIC ACID TABLET (FP) PO SCH (10:33)
[2017-08-26] MEDS: ASPIRIN 81 MG CHEWABLE TABLETS PO SCH (10:33)
[2017-08-26] MEDS: PANTOPRAZOLE 40 MG TABLET (FP) PO SCH (10:33)
[2017-08-26] MEDS: NICOTINE 21 MG/24 HOURS TOPICAL PATCH TD SCH (10:50)
--- NOTE | 2017-08-26 11:18 | PN ---
S CIWA - CIWA Score Nausea/Vomitin-No Nausea/No Vomiting Muscle Tremors: 4-Moderate,w/Arms Extend Anxiety: 4-Mod. Anxious/Guarded Agitation: 4-Moderately Restless Paroxysmal Sweats: 3 Orientation: 0-Oriented Tacttile Disturbances: 0-None Auditory Disturbances: 0-None Visual Disturbances: 0-None Headache: 1-Very Mild CIWA-Ar Total Score: 16 BHS Progress Note (SOAP) Subjective: agitation sweats shakes interrupted sleep body aches Objective: 08/25/17 11:16 Vital Signs - 24 hr 08/25/17 08/25/17 08/25/17 11:21 15:31 17:52 Temperature 95.9 F L 96.8 F L 98.1 F Pulse Rate 66 84 61 Respiratory 20 20 18 Rate Blood Pressure 124/88 130/80 100/59 08/25/17 08/26/17 08/26/17 22:38 03:30 06:00 Temperature 97.3 F L 97.2 F L Pulse Rate 61 55 L Respiratory 16 18 18 Rate Blood Pressure 141/88 136/75 08/26/17 11:09 Temperature 98.2 F Pulse Rate 77 Respiratory 18 Rate Blood Pressure 136/89 Laboratory Tests 08/24/17 08/25/17 08/25/17 19:00 07:00 07:00 WBC 6.3 D RBC 4.37 Hgb 13.1 Hct 40.5 MCV 92.6 MCH 29.9 MCHC 32.3 RDW 17.0 H D Plt Count 305 D MPV 8.5 Sodium 140 Potassium 4.4 Chloride 101 Carbon Dioxide 31 Anion Gap 8 BUN 8 Creatinine 0.6 Creat Clearance w eGFR > 60 Random Glucose 90 Calcium 9.5 Total Bilirubin 0.5 D AST 35 D ALT 41 D Alkaline Phosphatase 122 H Total Protein 7.5 Albumin 3.5 Urine Color Yellow Urine Appearance Cloudy Urine pH 5.0 Ur Specific [place] 1.025 Urine Protein Negative Urine Glucose (UA) Negative Urine Ketones Negative Urine Blood Negative Urine Nitrite Negative Urine Bilirubin Negative Urine Urobilinogen Negative Ur Leukocyte Esterase Negative Valproic Acid RPR Titer 08/25/17 08/26/17 07:00 06:00 WBC RBC Hgb Hct MCV MCH MCHC RDW Plt Count MPV Sodium Potassium Chloride Carbon Dioxide Anion Gap BUN Creatinine Creat Clearance w eGFR Random Glucose Calcium Total Bilirubin AST ALT Alkaline Phosphatase Total Protein Albumin Urine Color Urine Appearance Urine pH Ur Specific [place] Urine Protein Urine Glucose (UA) Urine Ketones Urine Blood Urine Nitrite Urine Bilirubin Urine Urobilinogen Ur Leukocyte Esterase Valproic Acid 3.550 L RPR Titer Nonreactive aaox3 ambulating no acute distress Assessment: 08/25/17 11:16 withdrawal sx Plan: continue detox increase fluids
--- NOTE | 2017-08-26 11:23 | PN ---
[facility] CIWA - CIWA Score Nausea/Vomitin-No Nausea/No Vomiting Muscle Tremors: 4-Moderate,w/Arms Extend Anxiety: 3 Agitation: 3 Paroxysmal Sweats: 3 Orientation: 0-Oriented Tacttile Disturbances: 0-None Auditory Disturbances: 0-None Visual Disturbances: 0-None Headache: 0-None Present CIWA-Ar Total Score: 13 S Progress Note (SOAP) Subjective: agitation I have a boil in my underarm pit sweats interrupted sleep agitation Objective: 08/26/17 11:19 Vital Signs Temperature 98.2 F 08/26/17 11:09 Pulse Rate 77 08/26/17 11:09 Respiratory Rate 18 08/26/17 11:09 Blood Pressure 136/89 08/26/17 11:09 O2 Sat by Pulse Oximetry (%) Laboratory Tests 08/24/17 08/25/17 08/25/17 19:00 07:00 07:00 WBC 6.3 D RBC 4.37 Hgb 13.1 Hct 40.5 MCV 92.6 MCH 29.9 MCHC 32.3 RDW 17.0 H D Plt Count 305 D MPV 8.5 Sodium 140 Potassium 4.4 Chloride 101 Carbon Dioxide 31 Anion Gap 8 BUN 8 Creatinine 0.6 Creat Clearance w eGFR > 60 Random Glucose 90 Calcium 9.5 Total Bilirubin 0.5 D AST 35 D ALT 41 D Alkaline Phosphatase 122 H Total Protein 7.5 Albumin 3.5 Urine Color Yellow Urine Appearance Cloudy Urine pH 5.0 Ur Specific [place] 1.025 Urine Protein Negative Urine Glucose (UA) Negative Urine Ketones Negative Urine Blood Negative Urine Nitrite Negative Urine Bilirubin Negative Urine Urobilinogen Negative Ur Leukocyte Esterase Negative Valproic Acid RPR Titer 08/25/17 08/26/17 07:00 06:00 WBC RBC Hgb Hct MCV MCH MCHC RDW Plt Count MPV Sodium Potassium Chloride Carbon Dioxide Anion Gap BUN Creatinine Creat Clearance w eGFR Random Glucose Calcium Total Bilirubin AST ALT Alkaline Phosphatase Total Protein Albumin Urine Color Urine Appearance Urine pH Ur Specific [place] Urine Protein Urine Glucose (UA) Urine Ketones Urine Blood Urine Nitrite Urine Bilirubin Urine Urobilinogen Ur Leukocyte Esterase Valproic Acid 3.550 L RPR Titer Nonreactive aaox3 ambulating no acute distress boil noted to underarm pit it is jd soft to touch Assessment: 08/26/17 11:21 withdrawal sx Plan: continue detox increase fluids bactrim ds x 14days encouraged warm compresses bacitracin oint
[2017-08-26] MEDS: CEPHALEXIN MONOHYDRATE 500 MG CAPSULE (UD) PO SCH ×3 (12:24→23:18)
[2017-08-26] MEDS: BACITRACIN 0.9 GM PACKET TP SCH ×2 (12:24→22:31)
[2017-08-26] MEDS: OLANZapine 5 MG TABLET PO SCH (22:32)
[2017-08-26] MEDS: ATORVASTATIN CA 10 MG TABLET (FP) PO SCH (22:32)
[2017-08-26] MEDS: chlordiazePOXIDE 5 MG CAPSULE PO SCH (22:33)
[2017-08-26] MEDS: THIAMINE HCL 100 MG TABLET (FP) PO SCH (22:38)
[2017-08-27] MEDS: CEPHALEXIN MONOHYDRATE 500 MG CAPSULE (UD) PO SCH ×4 (07:30→23:04)
[2017-08-27] MEDS: chlordiazePOXIDE 5 MG CAPSULE PO SCH ×3 (07:49→17:17)
[2017-08-27] MEDS: PANTOPRAZOLE 40 MG TABLET (FP) PO SCH (10:51)
[2017-08-27] MEDS: BACITRACIN 0.9 GM PACKET TP SCH ×2 (10:51→22:32)
[2017-08-27] MEDS: SERTRALINE HCL 50 MG TABLET (FP) PO SCH (10:51)
[2017-08-27] MEDS: ASPIRIN 81 MG CHEWABLE TABLETS PO SCH (10:51)
[2017-08-27] MEDS: PRENATAL VITAMINS W/ FOLIC ACID TABLET (FP) PO SCH (10:51)
[2017-08-27] MEDS: ENALAPRIL MALEATE 2.5 MG TABLET (FP) PO SCH (10:52)
[2017-08-27] MEDS: NICOTINE 21 MG/24 HOURS TOPICAL PATCH TD SCH (10:52)
--- NOTE | 2017-08-27 12:11 | PN ---
[facility] Progress Note (SOAP) Subjective: Interrupted sleep, shakes, agitation Objective: 08/27/17 12:08 Vital Signs Temperature 96.9 F L 08/27/17 09:43 Pulse Rate 70 08/27/17 09:43 Respiratory Rate 16 08/27/17 09:43 Blood Pressure 130/81 08/27/17 09:43 O2 Sat by Pulse Oximetry (%) Laboratory Last Values WBC 6.3 K/mm3 (4.0-10.0) D 08/25/17 07:00 RBC 4.37 M/mm3 (3.60-5.2) 08/25/17 07:00 Hgb 13.1 GM/dL (10.7-15.3) 08/25/17 07:00 Hct 40.5 % (32.4-45.2) 08/25/17 07:00 MCV 92.6 fl (80-96) 08/25/17 07:00 MCH 29.9 pg (25.7-33.7) 08/25/17 07:00 MCHC 32.3 g/dl (32.0-36.0) 08/25/17 07:00 RDW 17.0 % (11.6-15.6) H D 08/25/17 07:00 Plt Count 305 K/MM3 (134-434) D 08/25/17 07:00 MPV 8.5 fl (7.5-11.1) 08/25/17 07:00 Sodium 140 mmol/L (136-145) 08/25/17 07:00 Potassium 4.4 mmol/L (3.5-5.1) 08/25/17 07:00 Chloride 101 mmol/L (98-107) 08/25/17 07:00 Carbon Dioxide 31 mmol/L (21-32) 08/25/17 07:00 Anion Gap 8 (8-16) 08/25/17 07:00 BUN 8 mg/dL (7-18) 08/25/17 07:00 Creatinine 0.6 mg/dL (0.55-1.02) 08/25/17 07:00 Creat Clearance w eGFR > 60 (>60) 08/25/17 07:00 Random Glucose 90 mg/dL (74-106) 08/25/17 07:00 Calcium 9.5 mg/dL (8.5-10.1) 08/25/17 07:00 Total Bilirubin 0.5 mg/dL (0.2-1.0) D 08/25/17 07:00 AST 35 U/L (15-37) D 08/25/17 07:00 ALT 41 U/L (12-78) D 08/25/17 07:00 Alkaline Phosphatase 122 U/L (45-117) H 08/25/17 07:00 Total Protein 7.5 g/dl (6.4-8.2) 08/25/17 07:00 Albumin 3.5 g/dl (3.4-5.0) 08/25/17 07:00 Urine Color Yellow 08/24/17 19:00 Urine Appearance Cloudy 08/24/17 19:00 Urine pH 5.0 (5.0-8.0) 08/24/17 19:00 Ur Specific [place] 1.025 (1.005-1.025) 08/24/17 19:00 Urine Protein Negative (NEGATIVE) 08/24/17 19:00 Urine Glucose (UA) Negative (NEGATIVE) 08/24/17 19:00 Urine Ketones Negative (NEGATIVE) 08/24/17 19:00 Urine Blood Negative (NEGATIVE) 08/24/17 19:00 Urine Nitrite Negative (NEGATIVE) 08/24/17 19:00 Urine Bilirubin Negative (NEGATIVE) 08/24/17 19:00 Urine Urobilinogen Negative mg/dL (0.2-1.0) 08/24/17 19:00 Ur Leukocyte Esterase Negative (NEGATIVE) 08/24/17 19:00 Valproic Acid 3.550 ug/ml (50-100) L 08/26/17 06:00 RPR Titer Nonreactive (NONREACTIVE) 08/25/17 07:00 Labs noted 08/27/17 12:14 Assessment: Withdrawal sx 08/27/17 12:13 Plan: Continue detox Continue antibiotics therapy for under armpit boil
[2017-08-27] MEDS: ATORVASTATIN CA 10 MG TABLET (FP) PO SCH (22:32)
[2017-08-27] MEDS: chlordiazePOXIDE HCL 10 MG CAPSULE PO SCH (22:33)
[2017-08-27] MEDS: OLANZapine 5 MG TABLET PO SCH (22:34)
[2017-08-27] MEDS: THIAMINE HCL 100 MG TABLET (FP) PO SCH (22:34)
[2017-08-28 06:53] VITALS: BP 139/90; PULSE 58; TEMP 98.1
[2017-08-28] MEDS: CEPHALEXIN MONOHYDRATE 500 MG CAPSULE (UD) PO SCH (07:00)
[2017-08-28] MEDS: chlordiazePOXIDE HCL 10 MG CAPSULE PO SCH (07:02)
[2017-08-28] MEDS: ENALAPRIL MALEATE 2.5 MG TABLET (FP) PO SCH (09:21)
[2017-08-28] MEDS: ASPIRIN 81 MG CHEWABLE TABLETS PO SCH (09:21)
[2017-08-28] MEDS: BACITRACIN 0.9 GM PACKET TP SCH (09:21)
[2017-08-28] MEDS: PRENATAL VITAMINS W/ FOLIC ACID TABLET (FP) PO SCH (09:21)
[2017-08-28] MEDS: SERTRALINE HCL 50 MG TABLET (FP) PO SCH (09:21)
[2017-08-28] MEDS: NICOTINE 21 MG/24 HOURS TOPICAL PATCH TD SCH (09:22)
[2017-08-28] MEDS: PANTOPRAZOLE 40 MG TABLET (FP) PO SCH (09:22)
--- NOTE | 2017-08-28 09:25 | DS ---
[facility] Detox Discharge Summary Admission Date: 08/24/17 Discharge Date: 08/28/17 - History Present History: Alcohol Dependence, Cocaine Dependence Additional Comments: [facility] Pertinent Past History: asthma hypertension hypercholesterolemia bipolar disorder - Physical Exam Results Vital Signs: Vital Signs Temperature 98.1 F 08/28/17 06:53 Pulse Rate 58 L 08/28/17 06:53 Respiratory Rate 16 08/28/17 06:53 Blood Pressure 139/90 08/28/17 06:53 O2 Sat by Pulse Oximetry (%) - Treatment Hospital Course: Detox Protocol Followed, Detoxed Safely, Responded well, Discharged Condition Good Patient has Accepted a Rehab Referral to: declined - Medication Discharge Medications: Ambulatory Orders Atorvastatin Calcium [Lipitor] 10 mg PO HS 10/25/16 Sertraline HCl [Zoloft -] 100 mg PO DAILY #30 tablet 10/26/16 Olanzapine [Zyprexa -] 5 mg PO HS #30 tablet 02/06/17 Albuterol Sulfate Inhaler - [Ventolin HFA Inhaler -] 2 puff IH Q4H PRN #1 inhaler 02/10/17 Enalapril Maleate [Vasotec -] 2.5 mg PO DAILY #30 mg 02/10/17 Esomeprazole Magnesium 40 mg PO DAILY #30 mg 02/10/17 Aspirin [ASA -] 81 mg PO DAILY 08/24/17 Divalproex [Depakote -] 500 mg PO BID 08/24/17 Olanzapine [Zyprexa -] 5 mg PO HS #30 tablet 08/25/17 Sertraline HCl [Zoloft -] 50 mg PO DAILY #30 tablet 08/25/17 - Diagnosis (1) Alcohol dependence with uncomplicated withdrawal Current Visit: Yes Status: Acute (2) Cocaine dependence Current Visit: Yes Status: Acute Qualifiers: Substance use status: uncomplicated Qualified Code(s): F14.20 - Cocaine dependence, uncomplicated; F14.20 - Cocaine dependence, uncomplicated; F14.20 - Cocaine dependence, uncomplicated (3) Nicotine dependence Current Visit: Yes Status: Acute (4) Asthma Current Visit: Yes Status: Chronic Qualifiers: Asthma severity: mild Asthma complication type: uncomplicated (5) Hypercholesteremia Current Visit: Yes Status: Chronic (6) Hypertension Current Visit: Yes Status: Chronic Qualifiers: Hypertension type: essential hypertension Qualified Code(s): I10 - Essential (primary) hypertension; I10 - Essential (primary) hypertension; I10 - Essential (primary) hypertension (7) Bipolar disorder Current Visit: No Status: Chronic - AMA Did Patient Leave Against Medical Advice: No
== END 2017-08-28 10:10 | disposition home or self-care (01) | DRG 774 ==
LOC: YASAS 11:46 → Y6N 18:18
PROVIDERS: ADMIT Internal Medicine; ATTEND Internal Medicine
PROC: HZ2ZZZZ Detoxification Services for Substance Abuse Treatment (ICD-10-PCS; principal; 2017-08-24)
DX: F10.230 Alcohol dependence with withdrawal, uncomplicated (principal); F14.20 Cocaine dependence, uncomplicated; F17.210 Nicotine dependence, cigarettes, uncomplicated; F31.9 Bipolar disorder, unspecified; J45.909 Unspecified asthma, uncomplicated; E78.00 Pure hypercholesterolemia, unspecified; I10 Essential (primary) hypertension; K21.9 Gastro-esophageal reflux disease without esophagitis; I25.2 Old myocardial infarction; D64.9 Anemia, unspecified; Z91.14 Patient's other noncompliance with medication regimen; Z95.5 Presence of coronary angioplasty implant and graft; Z91.5 Personal history of self-harm
CPT/HCPCS: 36415; 80053; 80164; 81003; 85027; 86593; 93005; 93010